=== PATIENT | male | born 1950 | race Caucasian/White ===

== ENCOUNTER 2019-10-29 11:13 | Day surgery (SDC) | payer OTHER ==
[~2019-10-29] VITALS: Ht 175.3 cm; Wt 90.7 kg
[~2019-10-29 11:13] MED LIST: ALPR0.254 PO; AMIO200T33 PO; FLUT250M2 INH; LEVO25TA6 PO; LISI-707 PO; OMEP-335 PO; RIVA20TA PO
[2019-10-29] MEDS ORDERED: diphenhdrAMINE HCL 50 MG/1 ML VL IV ONE (11:15)
[2019-10-29] MEDS ORDERED: fentaNYL CITRATE 100 MCG/2 ML VL IV ONE (11:15)
[2019-10-29] MEDS ORDERED: MIDAZOLAM HCL 1MG/1ML-2 ML VIAL IV ONE (11:15)
[2019-10-29] MEDS ORDERED: LIDOCAINE VISCOUS 2% 15ML UD ONE (12:28)
[2019-11-01] MEDS ORDERED: LIDOCAINE VISCOUS 2% 15ML UD PO ONE (15:30)
== END 2019-10-29 14:26 | disposition home or self-care (01) ==
LOC: CATH 11:13
PROVIDERS: ATTEND Internal Medicine
DX: I48.91 Unspecified atrial fibrillation (principal); I08.1 Rheumatic disorders of both mitral and tricuspid valves; I10 Essential (primary) hypertension; J45.909 Unspecified asthma, uncomplicated; E78.5 Hyperlipidemia, unspecified; Z79.82 Long term (current) use of aspirin; Z79.899 Other long term (current) drug therapy; Z98.890 Other specified postprocedural states
CPT/HCPCS: 93005; 93312; J2250; J3010; J7040; 99152

== ENCOUNTER 2019-11-15 16:37 | Emergency (ER) | payer OTHER ==
[~2019-11-15] VITALS: Ht 175.3 cm; Wt 90.7 kg
[2019-11-15 16:49] VITALS: BP 148/94
[2019-11-15 17:24] LABS: Basophils # (auto) 0 10 ^3/uL (0-0.2); Basophils % (auto) 0.5 % (0.0-2.0); Eosinophils # (auto) 0.1 10 ^3/uL (0-0.8); Eosinophils % (auto) 0.9 % (0.0-7.0); Hematocrit 46.9 % (41.0-53.0); Hemoglobin 15.6 g/dL (13.5-17.5); Lymphocytes # (auto) 1.3 10 ^3/uL (0.4-5.4); Mean Corpuscular Hgb Conc. 33.2 g/dL (32.0-36.0); Mean Corpuscular Volume 84.6 fL (80.0-100.0); Monocytes # (auto) 0.6 10 ^3/uL (0-1.3); Monocytes % (auto) 8.2 % (0.0-12.0); Neutrophils # (auto) 5.6 10 ^3/uL (1.6-8.6); Neutrophils % (auto) 73.4 % (37.0-80.0); Nucleated Red Blood Cells % 0.1 %; Platelet Count (auto) 268 10^3/uL (140-450); Red Blood Cells 5.55 10^6/uL (4.5-5.90); Red Cell Distribution Width 14.5 % (11.8-14.3); White Blood Cell 7.6 10^3/uL (4.4-10.8)
[2019-11-15 17:32] LABS: INR 1.63 (0.9-1.15); Partial Thromboplastin Time 48.3 sec (23.64-32.05)
[2019-11-15 17:33] LABS: Alanine Aminotransferase 29 U/L (16-61); Albumin 4.1 g/dL (3.4-5.0); Anion Gap 7 (5-15); Aspartate Aminotransferase 19 U/L (15-37); BUN/Creatinine Ratio 18.8; Blood Urea Nitrogen 19 mg/dL (7-18); Calcium 9.4 mg/dL (8.5-10.1); Carbon Dioxide 24 mmol/L (21-32); Chloride 104 mmol/L (98-107); GFR African American 94 mL/min; GFR Non-African American 78 mL/min; Glucose 120 mg/dL (74-106); Magnesium 2.4 mg/dL (1.6-2.6); Sodium 135 mmol/L (136-145)
[2019-11-15 17:38] LABS: Alkaline Phosphatase 87 U/L (45-117); Bilirubin, Total 0.3 mg/dL (0.2-1.0); Total Protein 7.9 g/dL (6.4-8.2)
== END 2019-11-15 20:21 | disposition left against medical advice (07) ==
LOC: ER 16:41
DX: R00.2 Palpitations (principal); Z53.21 Procedure and treatment not carried out due to patient leaving prior to being seen by health care provider
CPT/HCPCS: 36415; 80053; 83735; 83880; 84443; 84484; 85025; 85610; 85730; 93005